=== PATIENT | male | born 1955 | race Caucasian/White ===

== ENCOUNTER → 2017-09-10 | Outpatient (CLI) | payer OTHER ==
[~2017-09-10] MED LIST: ALBU90OI6 INH; Aspirin EC81 MG PO; DIPHENHYDRAMINE; EYE VITAMINS; LORPSEER12; MONT10T PO; MULTIVITAMIN; Multiple Vitam1 EAC1 PO; NAPR550 PO; OXYACE5T PO; Red Yeast Rice600 MG PO; Suphedrine30 MG PO; TESTTP IM; VITAMIN D; VITAMIN D32000 UNIT PO; ZOLP10 PO
[2017-09-10 13:44] LABS: BASOPHILS ABSOLUTE AUTO 0.05 K/mm3 (0.00-0.23); BASOPHILS PERCENT AUTO 1 % (0-2); EOSINOPHILS ABSOLUTE AUTO 0.23 K/mm3 (0.00-0.68); EOSINOPHILS PERCENT AUTO 4 % (0-6); Hematocrit 54.7 % (37.0-53.0); Hemoglobin 18.7 g/dL (13.5-17.5); IMMATURE GRAN ABSOLUTE AUTO 0.02 K/mm3 (0.00-0.10); IMMATURE GRAN PERCENT AUTO 0 % (0-1); LYMPHOCYTES PERCENT AUTO 32 % (21-46); MONOCYTES ABSOLUTE AUTO 0.54 K/mm3 (0.16-1.47); MONOCYTES PERCENT AUTO 10 % (4-13); Mean Corpuscular HGB 31.2 pg (26.0-34.0); Mean Corpuscular HGB Conc 34.2 g/dL (31.5-36.5); Mean Corpuscular Volume 91 fL (80-100); Mean Platelet Volume 10.3 fL (9.1-12.4); NEUTROPHILS ABSOLUTE AUTO 2.94 K/mm3 (1.96-9.15); NEUTROPHILS PERCENT AUTO 53 % (41-73); Platelet Count 196 K/mm3 (150-400); RDW Standard Deviation 40.2 fL (35.1-46.3); Red Blood Cell Count 5.99 M/mm3 (4.30-5.90); White Blood Cell Count 5.58 K/mm3 (4.00-11.30)
[2017-09-10 14:26] LABS: Alanine Aminotransfer (ALT/SGP 36 U/L (12-78); Albumin/Globulin Ratio 1.1 (0.8-1.8); Alk Phos 87 U/L (50-136); Anion Gap 6 mmol/L (6-16); Aspartate Aminotrans (AST/SGOT 22 U/L (12-37); Bilirubin, Total 0.6 mg/dL (0.1-1.0); Blood Urea Nitrogen 17 mg/dL (8-24); Bun/Creatinine Ratio 19.6 (12.0-20.0); CO2, Blood 25 mmol/L (21-32); Calcium, Blood 9.1 mg/dL (8.5-10.1); Chloride, Blood 106 mmol/L (98-108); Creatinine, Blood 0.87 mg/dL (0.60-1.20); Free Thyroxine 0.94 ng/dL (0.70-1.60); Globulin, Blood 3.5 g/dL (2.2-4.0); Glomerular Filtration Rate >60 (60-); Glucose, Blood 101 mg/dL (70-99); Potassium, Blood 4.3 mmol/L (3.5-5.5); Sodium, Blood 137 mmol/L (136-145); Total Protein, Blood 7.5 g/dL (6.4-8.2)
== END | disposition home or self-care (01) ==
LOC: OLS 09:31 → LAB SHORT 09:31
PROVIDERS: Hospitalist
DX: E04.1 Nontoxic single thyroid nodule (principal); R53.83 Other fatigue
CPT/HCPCS: 80053; 84439; 84443; 85025

== ENCOUNTER → 2018-03-29 | Outpatient (CLI) | payer OTHER | LOC: LAB EV 09:18 → LAB SHORT 09:18 | DX: N39.0 Urinary tract infection, site not specified (principal) | CPT/HCPCS: 87077; 87086; 87186 ==

== ENCOUNTER 2021-01-05 09:41 | Day surgery (SDC) | payer MEDICARE ==
[~2021-01-05] VITALS: Ht 170.2 cm; Wt 67.7 kg
[2021-01-05] MEDS ORDERED: DEPO-TESTO200 MG/1 M IM (10:42)
[2021-01-05] MEDS ORDERED: METHIMAZOLE5 M1 PO (10:42)
[2021-01-05] MEDS ORDERED: Prinivil10 MG PO (10:43)
--- NOTE | 2021-01-05 11:32 | NUR ---
01/05/21 1132 Cornelius Bhagat LIDOCAINE 2% 1:100,000 DILUTED & VERIFIED IN OR BY RN PER ORDER TO LIDOCAINE 1% 1:200,000 FOR INJECTION AT OPSITE BY DR BARRETO. 2.5 MLS INJECTED.
== END 2021-01-05 15:15 | disposition home or self-care (01) ==
LOC: ORSCSDS 09:41
PROVIDERS: Otolaryngology
PROC: 0GBJ0ZZ Excision of Thyroid Gland Isthmus, Open Approach (ICD-10-PCS; principal; 2021-01-05 11:00)
PROC: 0GTK0ZZ Resection of Thyroid Gland, Open Approach (ICD-10-PCS; principal; 2021-01-05 11:00)
DX: E05.20 Thyrotoxicosis with toxic multinodular goiter without thyrotoxic crisis or storm (principal); I10 Essential (primary) hypertension; K21.9 Gastro-esophageal reflux disease without esophagitis; Z79.899 Other long term (current) drug therapy
CPT/HCPCS: 88307; J1100; J2250; J2405; J2704; J3010; J7120

== ENCOUNTER → 2021-08-24 | Outpatient (CLI) | payer MEDICARE ==
[~2021-08-24] MED LIST changes: +DEPO-TESTO200 MG/1 M IM; +METHIMAZOLE5 M1 PO; +Prinivil10 MG PO
[2021-08-25 09:10] LABS: Stool Occult Bld Immuno 1 Negative (NEGATIVE); Stool Occult Bld Immuno 2 Negative (NEGATIVE)
== END | disposition home or self-care (01) ==
LOC: LAB SHORT 12:41
PROVIDERS: Internal Medicine Gastroenterology
DX: Z09 Encounter for follow-up examination after completed treatment for conditions other than malignant neoplasm (principal); Z86.010 Personal history of colon polyps
CPT/HCPCS: 82274